=== PATIENT | female | born 1950 | race Caucasian/White ===

== ENCOUNTER 2023-01-05 05:41 | Emergency (ER) | payer MEDICARE, MEDICAID ==
[~2023-01-05] VITALS: Ht 167.6 cm; Wt 48.8 kg
[~2023-01-05 05:41] MED LIST: LITH5CAP PO; NORCO10T PO; QUET-1 PO
[2023-01-05 06:16] VITALS: BP 101/63
--- NOTE | 2023-01-05 07:43 | NUR ---
DR ROY AT BEDSIDE PERFORMING ASSESSMENT AND EXAM
== END 2023-01-05 07:57 | disposition home or self-care (01) ==
LOC: ER 05:41
DX: M25.561 Pain in right knee (principal); G89.29 Other chronic pain; M54.9 Dorsalgia, unspecified; Z88.0 Allergy status to penicillin; Z79.899 Other long term (current) drug therapy
CPT/HCPCS: 73564; 99283